=== PATIENT | male | born 1990 | race African-American/Black ===

== ENCOUNTER → 2019-10-25 | Emergency (ER) | payer MEDICAID ==
[~2019-10-25] MED LIST: BENADRYL25 M3 PO; QUETIAPINE FUM100 MG ORAL; ZOLOFT100 MG ORAL
--- NOTE | 2019-10-25 15:50 | Emergency Room Report ---
History of Present Illness General Chief Complaint: To Be Triaged Present Illness HPI 29-year-old male with history of bipolar disorder with psychotic refill of Seroquel, Zoloft. Patient reports that he takes 100 mg of Seroquel in the morning, 300 mg simple at night, and in 100 mg of Zoloft in the morning and 50 mg of Benadryl at nighttime. Patient appears to be compliant with medication. Denies any visual or auditory hallucinations at this time. Reports that he has an upcoming appointment with his psychiatrist in 2 weeks. Patient has resources to go to mental health facilities if needed. Denies any complaints. Allergies: Coded Allergies: No Known Allergies (Unverified , 10/25/19) Patient History Past Medical History: see triage record Past Surgical History: unable to obtain Family History: none Immunizations: UTD Reviewed Nursing Documentation: PMH: Agreed; PSxH: Agreed Review of Systems All Other Systems: negative except mentioned in HPI Physical Exam Sp02 EP Interpretation: reviewed, normal General Appearance: alert/responsive, no apparent distress, GCS 15, non-toxic Head: atraumatic Eyes: PERRL, lids + conjunctiva normal ENT: hearing intact, no angioedema Neck: supple/symm/no masses, no meningismus Respiratory: effort normal, no rhonchi, no wheezing, chest symmetrical Cardiovascular: regular rate, rhythm, no edema Gastrointestinal: non-tender, no mass, non-distended, no rebound/guarding, normal bowel sounds Musculoskeletal: gait & station normal, normal ROM, strength & tone normal, non -tender Neurologic: oriented x3, sensory intact, normal speech Psychiatric: normal inspection, judgment & insight normal Skin: normal inspection, no rash Lymphatic: normal inspection Medical Decision Making PA Attestation All my diagnosis and treatment plans were reviewed ad discussed with my supervising physician Dr. Parson Diagnostic Impression: Primary Impression: Medication refill ER Course 29-year-old male with history of bipolar disorder with psychotic refill of Seroquel, Zoloft. Patient reports that he takes 100 mg of Seroquel in the morning, 300 mg simple at night, and in 100 mg of Zoloft in the morning and 50 mg of Benadryl at nighttime. Patient appears to be compliant with medication. Denies any visual or auditory hallucinations at this time. Reports that he has an upcoming appointment with his psychiatrist in 2 weeks. Patient has resources to go to mental health facilities if needed. Denies any complaints. Ddx considered but are not limited to: generalized anxiety disorder, panic attack, depression with psycotic featurs, bipolar disorder, drug overdose Vital signs: are WNL, pt. is afebrile H&PE are most consistent with: Medication refill ORDERS: Seroquel, Zoloft, Benadryl ED INTERVENTIONS: None required at this time. DISCHARGE: At this time pt. is stable for d/c to home. Will provide printed patient care instructions, and any necessary prescriptions. Care plan and follow up instructions have been discussed with the patient prior to discharge. Patient to follow with psychiatrist, take medication as directed, if worsening symptoms return to emergency room Disposition: HOME, SELF-CARE Condition: Stable Scripts Diphenhydramine HCl (Benadryl) 25 Mg Capsule 50 MG PO BEDTIME for 14 Days, #28 CAP Prov: Yash Gay 10/25/19 Sertraline Hcl* (ZOLOFT*) 100 Mg Tablet 100 MG ORAL DAILY for 14 Days, #14 TAB Prov: Yash Gay 10/25/19 Quetiapine Fumarate* (SEROQUEL*) 100 Mg Tablet 300 MG ORAL BEDTIME for 14 Days, #42 TAB Prov: Yash Gay 10/25/19 Quetiapine Fumarate* (SEROQUEL*) 100 Mg Tablet 100 MG ORAL DAILY for 14 Days, #14 TAB Prov: Yash Gay 10/25/19 Patient Instructions: Medicine Refill at the Emergency Department Yash Gay Oct 25, 2019 15:50
--- NOTE | 2019-10-25 16:02 | NUR ---
ED Nurse Note: Patient is being discharged from medical care. D/C instruction and prescription given to patient. Patient ambulated out with steady gait with his belongings.
== END | disposition home or self-care (01) ==
LOC: EMR 15:56
DX: Z76.0 Encounter for issue of repeat prescription (principal); F31.9 Bipolar disorder, unspecified
CPT/HCPCS: 99282

== ENCOUNTER 2019-11-14 15:11 | Emergency (ER) | payer MEDICAID ==
[~2019-11-14] VITALS: Ht 177.8 cm; Wt 104.3 kg
[2019-11-14 15:22] VITALS: BP 124/78
--- NOTE | 2019-11-14 15:23 | NUR ---
ED Nurse Note: Pt ambulated to ED requesting medication refill on zoloft 100 mg and seroquel 100mg. NAD noted
--- NOTE | 2019-11-14 15:31 | Emergency Room Report ---
History of Present Illness General Chief Complaint: Medication Refill Source: Patient Present Illness HPI 29-year-old male with history of bipolar disorder with psychotic features, here requesting a medication refill. Patient was here mid-October for the same reason. Reports appointment with a psychiatrist on 27 November. Is compliant with taking his medication. Last dose of Seroquel, Zoloft, Benadryl were taken today. Patient denies any visual or auditory hallucinations. Denies SI and HI. Has no further complaints. And remembers exact dosing of his medication. Allergies: Coded Allergies: No Known Allergies (Unverified , 10/25/19) Patient History Past Medical History: see triage record Past Surgical History: unable to obtain Pertinent Family History: none Immunizations: UTD Reviewed Nursing Documentation: PMH: Agreed; PSxH: Agreed Nursing Documentation-PMH Past Medical History: No History, Except For Hx Cardiac Problems: No - bipolar Review of Systems All Other Systems: negative except mentioned in HPI Physical Exam Vital Signs Date Time Temp Pulse Resp B/P (MAP) Pulse Ox O2 Delivery O2 Flow Rate FiO2 11/14/19 15:16 97.3 87 19 124/78 (93) 98 Room Air Sp02 EP Interpretation: reviewed, normal General Appearance: well appearing, no apparent distress Head: normocephalic, atraumatic Eyes: bilateral eye normal inspection, bilateral eye PERRL ENT: hearing grossly normal, normal voice Neck: full range of motion, supple, no bony tend Respiratory: normal inspection, chest non-tender, lungs clear, no rhonchi, no respiratory distress, speaking full sentences Cardiovascular #1: normal inspection, normal peripheral pulses, regular rate, rhythm, no edema, no JVD, no murmur Gastrointestinal: non tender, soft Rectal: deferred Musculoskeletal: gait/station normal, swelling, normal range of motion Neurologic: alert, oriented, normal gait Psychiatric: judgement/insight normal, mood/affect normal, no suicidal/ homicidal ideation, no delusions Skin: no rash Lymphatic: no adenopathy Medical Decision Making PA Attestation All diagnoses and treatment plans were reviewed and discussed with my supervising physician Dr. Posadas Diagnostic Impression: Primary Impression: Encounter for medication refill ER Course 29-year-old male with history of bipolar disorder with psychotic features, here requesting a medication refill. Patient was here mid-October for the same reason. Reports appointment with a psychiatrist on 27 November. Is compliant with taking his medication. Last dose of Seroquel, Zoloft, Benadryl were taken today. Patient denies any visual or auditory hallucinations. Denies SI and HI. Has no further complaints. And remembers exact dosing of his medication. Ddx considered but are not limited to: generalized anxiety disorder, panic attack, depression with psycotic featurs, bipolar disorder, drug overdose Vital signs: are WNL, pt. is afebrile H&PE are most consistent with: medication refill ORDERS: Seroquel, Zoloft, Benadryl ED INTERVENTIONS: None required at this time. DISCHARGE: At this time pt. is stable for d/c to home. Will provide printed patient care instructions, and any necessary prescriptions. Care plan and follow up instructions have been discussed with the patient prior to discharge. Follow-up with your psychiatrist, take medication as directed, if worsening symptoms return to the emergency room Last Vital Signs Date Time Temp Pulse Resp B/P (MAP) Pulse Ox O2 Delivery O2 Flow Rate FiO2 11/14/19 15:22 97.3 76 19 124/78 98 Room Air Disposition: HOME, SELF-CARE Condition: Stable Scripts Diphenhydramine HCl (Benadryl) 25 Mg Capsule 50 MG PO BEDTIME for 14 Days, #28 CAP Prov: Yash Gay 11/14/19 Sertraline Hcl* (ZOLOFT*) 100 Mg Tablet 100 MG ORAL DAILY for 14 Days, #14 TAB Prov: Yash Gay 11/14/19 Quetiapine Fumarate* (SEROQUEL*) 100 Mg Tablet 300 MG ORAL BEDTIME for 14 Days, #42 TAB Prov: Yash Gay 11/14/19 Quetiapine Fumarate* (SEROQUEL*) 100 Mg Tablet 100 MG ORAL DAILY for 14 Days, #14 TAB Prov: Yash Gay 11/14/19 Patient Instructions: Medicine Refill at the Emergency Department Additional Instructions: Take medication as directed, follow-up with your psychiatrist, if worsening symptoms return to the emergency room Yash Gay Nov 14, 2019 15:31
[2019-11-14] MEDS ORDERED: QUETIAPINE FUM100 MG ORAL ×2 (15:32)
[2019-11-14] MEDS ORDERED: BENADRYL25 M3 PO (15:32)
[2019-11-14] MEDS ORDERED: ZOLOFT100 MG ORAL (15:32)
[2019-11-14 15:34] VITALS: BP 119/76
--- NOTE | 2019-11-14 15:35 | NUR ---
ER DISCHARGE NOTE: Patient is cleared to be discharged per ERMD, pt is aox4, on room air, with stable vital signs. pt was given dc and prescription instructions, pt was able to verbalize understanding, pt id band removed. pt is able to ambulate with steady gait. pt took all belongings.
== END 2019-11-14 16:25 | disposition home or self-care (01) ==
LOC: EMR 15:31
DX: F31.89 Other bipolar disorder (principal); Z76.0 Encounter for issue of repeat prescription
CPT/HCPCS: 99282

== ENCOUNTER 2020-03-24 12:37 | Emergency (ER) | payer MEDICAID ==
[~2020-03-24] VITALS: Ht 177.8 cm; Wt 108.9 kg
--- NOTE | 2020-03-24 12:40 | NUR ---
ED Nurse Note: Pt cleared by health care Provider for discharge. DC instructions/prescription was given and explained to pt and verbalized understanding of teachings. All medical deviecs such as ID band removed. Pt is AAO x4, ambulatory and left with all personal belongings. Addendum: 03/24/20 at 1422 by JENNIFER wrong time
[2020-03-24 12:57] VITALS: BP 125/78
--- NOTE | 2020-03-24 12:59 | NUR ---
ED Nurse Note:pt. came for psych meds refills, he doesn't have the list
--- NOTE | 2020-03-24 13:10 | Emergency Room Report ---
History of Present Illness General Chief Complaint: Medication Refill Present Illness HPI 29-year-old male with history of bipolar disorder with psychotic features who has been here multiple times for medication refill here requesting refill of Seroquel 100 mg in the morning and Seroquel 300 mg at nighttime as well as Zoloft 100 mg daily and Benadryl 50 mg daily. Patient reports that he last saw his psychiatrist 3 months ago and has been unable to see him due to COVID pandemic. Denies any suicidal homicidal ideation. Reports that he took the last dose of his medication yesterday. Denies any hallucination or delusions at this time. Is sitting comfortably with stable vital signs. Denies chest pain, shortness of breath, palpitation, headache and dizziness. Patient is aware that we cannot write Seroquel for more than limited numbers and patient is to follow-up with psychiatrist. Allergies: Coded Allergies: No Known Allergies (Unverified , 10/25/19) COVID-19 Screening Contact w/high risk pt: No Recent Travel to affected area: No Experienced COVID-19 symptoms?: No COVID-19 Testing performed SENIOR SALES COMPENSATION ANALYST: No Patient History Past Medical History: see triage record Past Surgical History: none Pertinent Family History: none Immunizations: UTD Reviewed Nursing Documentation: PMH: Agreed; PSxH: Agreed Nursing Documentation-PMH Hx Cardiac Problems: No - bipolar Review of Systems All Other Systems: negative except mentioned in HPI Physical Exam Vital Signs Date Time Temp Pulse Resp B/P (MAP) Pulse Ox O2 Delivery O2 Flow Rate FiO2 03/24/20 12:48 98.2 93 20 125/78 (94) 98 Room Air Sp02 EP Interpretation: reviewed, normal General Appearance: well appearing, no apparent distress Head: normocephalic, atraumatic Eyes: bilateral eye normal inspection, bilateral eye PERRL ENT: hearing grossly normal, normal voice Neck: full range of motion, supple Respiratory: no respiratory distress, speaking full sentences Cardiovascular #1: regular rate, rhythm, no edema Cardiovascular #2: 2+ radial (R), 2+ radial (L) Gastrointestinal: non tender, soft Rectal: deferred Genitourinary: no CVA tenderness Musculoskeletal: gait/station normal Neurologic: alert, oriented, normal gait Psychiatric: judgement/insight normal, memory normal, mood/affect normal, no suicidal/homicidal ideation, no delusions Skin: no rash Lymphatic: no adenopathy Medical Decision Making PA Attestation All my diagnosis and treatment plans were reviewed ad discussed with my supervising physician Dr. Parson Diagnostic Impression: Primary Impression: Encounter for medication refill ER Course 29-year-old male with history of bipolar disorder with psychotic features who has been here multiple times for medication refill here requesting refill of Seroquel 100 mg in the morning and Seroquel 300 mg at nighttime as well as Zoloft 100 mg daily and Benadryl 50 mg daily. Patient reports that he last saw his psychiatrist 3 months ago and has been unable to see him due to COVID pandemic. Denies any suicidal homicidal ideation. Reports that he took the last dose of his medication yesterday. Denies any hallucination or delusions at this for 7 days only, Zoloft,. Is sitting comfortably with stable vital signs. Denies chest pain, shortness of breath, palpitation, headache and dizziness. Patient is aware that we cannot write Seroquel for more than limited numbers and patient is to follow-up with psychiatrist. Ddx considered but are not limited to: generalized anxiety disorder, panic attack, depression with psycotic featurs, bipolar disorder, drug overdose Vital signs: are WNL, pt. is afebrile H&PE are most consistent with: Medication refill ORDERS: Seroquel 100 mg in the morning #7 for 7 days only, Seroquel 300 mg bedtime only for 7 days, Zoloft 100 mg for 1 month supply after I consulted with my supervising physician, Benadryl 50 mg for 7 days only ED INTERVENTIONS: None required at this time. DISCHARGE: At this time pt. is stable for d/c to home. Will provide printed patient care instructions, and any necessary prescriptions. Care plan and follow up instructions have been discussed with the patient prior to discharge. Patient to follow-up with primary doctor and psychiatrist for further refills also given list of mental health facilities to go to if cannot reach psychiatrist, if worsening symptoms return to the emergency room. Patient was evaluated in the context of the global COVID-19 pandemic, which necessitated consideration that the patient might be at risk for infection with the SARS-COV-2 virus that causes COVID-19. Institutional protocols and algorithms that pertain to the evaluation of patients at risk for COVID-19 are in a state of rapid change based on information relieved by multiple regulatory bodies including the CDC and the federal and state organizations. These policies and algorithms were followed during the patient's care in the ED. Last Vital Signs Date Time Temp Pulse Resp B/P (MAP) Pulse Ox O2 Delivery O2 Flow Rate FiO2 03/24/20 12:57 98.2 20 125/78 98 Room Air 03/24/20 12:48 93 Disposition: HOME, SELF-CARE Condition: Stable Scripts Sertraline Hcl* (ZOLOFT*) 100 Mg Tablet 100 MG ORAL DAILY for 30 Days, #30 TAB Prov: Yash Gay 03/24/20 Diphenhydramine HCl (Benadryl) 25 Mg Capsule 50 MG PO DAILY for 7 Days, #14 CAP Prov: aYsh Gay 03/24/20 Quetiapine Fumarate* (SEROQUEL*) 100 Mg Tablet 300 MG ORAL BEDTIME for 7 Days, #21 TAB 0 Refills Prov: Yash Gay 03/24/20 Quetiapine Fumarate* (SEROQUEL*) 100 Mg Tablet 100 MG ORAL DAILY for 7 Days, #7 TAB Prov: Yash Gay 03/24/20 Patient Instructions: Medicine Refill at the Emergency Department Additional Instructions: Follow-up with primary doctor or psychiatrist for further refills of psych medication, if worsening symptoms return to the emergency room Yash Gay Mar 24, 2020 13:10
[2020-03-24] MEDS ORDERED: ZOLOFT100 MG ORAL (13:12)
[2020-03-24] MEDS ORDERED: BENADRYL25 M3 PO (13:12)
[2020-03-24] MEDS ORDERED: SEROQUEL100 MG ORAL ×2 (13:12)
[2020-03-24 13:25] VITALS: BP 125/78
--- NOTE | 2020-03-24 13:25 | NUR ---
ED Nurse Note: Pt cleared by health care Provider for discharge. DC instructions/prescription was given and explained to pt and verbalized understanding of teachings. All medical deviecs such as ID band removed. Pt is AAO x4, ambulatory and left with all personal belongings.
== END 2020-03-24 13:25 | disposition home or self-care (01) ==
LOC: EMR 13:13
DX: Z76.0 Encounter for issue of repeat prescription (principal)
CPT/HCPCS: 99282

== ENCOUNTER 2020-06-03 09:45 | Emergency (ER) | payer MEDICAID ==
[~2020-06-03] VITALS: Ht 177.8 cm; Wt 108.9 kg
[~2020-06-03 09:45] MED LIST changes: +SEROQUEL100 MG ORAL
[2020-06-03 09:51] VITALS: BP 116/76
[2020-06-03] MEDS ORDERED: ZOLOFT100 MG ORAL (10:03)
[2020-06-03] MEDS ORDERED: SEROQUEL100 MG ORAL (10:03)
--- NOTE | 2020-06-03 10:03 | Emergency Room Report ---
History of Present Illness General Chief Complaint: Medication Refill Source: Patient Present Illness HPI -[place] 30-year-old male with past medical history of psychiatric illness presents to ED with medication refill request. He currently denies any suicidal, homicidal ideation, auditory or visual hallucinations. Denies fever, neck pain or stiffness, rash, photophobia, headache, chills, chest pain, cough, nausea, vomiting, diarrhea or other complaints. The patient's symptoms were gradual onset, severity was moderate, duration since 1 day Quality: Denies pain Past medical history: Psychiatric Past surgical history: Denies Smoking: Denies Alcohol use: Denies Drug use: Denies Review of systems: CONST: No fevers or chills, No night sweats PULMONARY: No productive cough, No shortness of breath CARDIAC: No chest pain, No palpitations GI: No vomiting, No diarrhea , No melena_or_BRBPR : No dysuria, No hematuria, No discharge NEURO: No new_focal_weakness_or_numbness, No confusion, No vision changes 14 point Review of Systems is otherwise negative except per HPI Physical Exam: GENERAL: Awake_alert_ nontoxic, no acute distress Spo2 100% on [RA] -[normal] EYES: Extraocular muscles are intact. Conjunctivae clear. Lids without swelling ENT: External nose and ear normal_in_appearance. Oropharynx clear. Head_ atraumatic, Moist_oral_mucosa NECK: No JVD. No meningismus. No thyromegaly. Supple. Trachea midline RESP: Normal respiratory effort. Symmetric rise. No stridor. Clear_to_ auscultation_No_rales_No_wheezes CARDIAC: Regular rate and regular rhytm. No_significant pedal edema. ABDOMEN: Soft. Nondistended. Nontender_No_rebound_or_guarding. MSK: Normal muscle tone, without rigidity. Extremities without asymmetric deformity or swelling. SKIN: Warm and dry. No visible cyanosis or pallor NEUROLOGIC: Alert, oriented x3. Motor_and_sensation_grossly_intact. No truncal ataxia. Gait_normal Psych: Normal mood and affect, normal judgment and insight Denies SI, HI, auditory or visual hallucinations - COORDINATION OF CARE Case was discussed with: Patient I reviewed previous ER medical records and did a medical reconciliation to confirm that patient is taking Zoloft 100 mg daily as well as Seroquel 100 mg p.o. every morning and 300 mg p.o. every afternoon. Medical Decision Making/Plan: Differential diagnosis includes anxiety attack, generalized anxiety disorder, stress reaction, medication refill among others. Med rec is consistent with his request for med refill. I will refill his psychiatric medications for the next 3 weeks which should give him enough time to follow-up with his outpatient therapist/psychologist. Patient verbalizes his understanding that he will need to go to his specialist in order to continue chronic maintenance therapy. He denies any suicidal, homicidal, auditory or visual hallucinations at this time. He is hemodynamically stable. Affect is appropriate. The patient denies any suicide attempt, overdose, or ingestion. They exhibit no signs of any severe toxic syndrome or drug / alcohol withdrawal. They have no focal neurologic deficits and were able to ambulate with a steady gait without assistance. The patients presentation seems to be consistent with chronic psychiatric maintenance, without any evidence of dangerous arrhythmias, thyrotoxicosis, metabolic / endocrinologic emergency, or indication for emergency psychiatric evaluation. The patient appears to be stable for dc home and follow with psychiatry as an outpatient. Allergies: Coded Allergies: No Known Allergies (Unverified , 10/25/19) COVID-19 Screening Contact w/high risk pt: No Recent Travel to affected area: No Experienced COVID-19 symptoms?: No COVID-19 Testing performed LABORER/KEY MAN: No Nursing Documentation-[facility] Past Medical History: No History, Except For Hx Cardiac Problems: No - bipolar Physical Exam Vital Signs Date Time Temp Pulse Resp B/P (MAP) Pulse Ox O2 Delivery O2 Flow Rate FiO2 06/03/20 09:51 98.4 96 15 116/76 100 Room Air Sp02 EP Interpretation: reviewed, normal Medical Decision Making Diagnostic Impression: Primary Impression: Encounter for medication refill Last Vital Signs Date Time Temp Pulse Resp B/P (MAP) Pulse Ox O2 Delivery O2 Flow Rate FiO2 06/03/20 09:51 98.4 96 15 116/76 (89) 100 Room Air Disposition: HOME, SELF-CARE Admit Decision Time: 10:02 Condition: Stable Scripts Quetiapine Fumarate* (SEROQUEL*) 100 Mg Tablet 300 MG ORAL BEDTIME for 14 Days, #42 TAB Prov: Miriam Hein D.O. 06/03/20 Sertraline Hcl* (ZOLOFT*) 100 Mg Tablet 100 MG ORAL DAILY for 30 Days, #30 TAB Prov: Miriam Hein D.O. 06/03/20 Quetiapine Fumarate* (SEROQUEL*) 100 Mg Tablet 100 MG ORAL DAILY for 7 Days, #7 TAB Prov: Miriam Hein D.O. 06/03/20 Patient Instructions: Medicine Refill at the Emergency Department Additional Instructions: Instructions for patient/gas station clerk: Follow up with your physician in [1-2 days]. Follow-up with your psychiatrist as an outpatient as indicated. Take all medications as prescribed. Follow-up with your doctor sooner if your condition requires a more timely clinical reevaluation. Return to the emergency department immediately if you feel that your condition is worsening or if you have any new or concerning symptoms. Review your discharge instructions and take any prescriptions given as instructed. Miriam Hein D.O. Jun 03, 2020 10:03
[2020-06-03] MEDS ORDERED: QUETIAPINE FUM100 MG ORAL (10:09)
[2020-06-03 10:14] VITALS: BP 122/85
== END 2020-06-03 10:14 | disposition home or self-care (01) ==
LOC: EMR 10:12
DX: Z76.0 Encounter for issue of repeat prescription (principal); F31.9 Bipolar disorder, unspecified
CPT/HCPCS: 99282

== ENCOUNTER 2020-08-22 15:49 | Emergency (ER) | payer MEDICAID ==
[~2020-08-22] VITALS: Ht 177.8 cm; Wt 113.4 kg
--- NOTE | 2020-08-22 15:55 | NUR ---
ED Nurse Note: Pt walked in for refill of seroquel and zoloft. Respirations even and unlabored on room air. Vitals stable as documented. A+Ox4, speaking in complete sentences
--- NOTE | 2020-08-22 16:06 | Emergency Room Report ---
History of Present Illness General Chief Complaint: Medication Refill Source: Patient Present Illness HPI 30-year-old male history of schizophrenia currently on Seroquel and Zoloft here requesting medication refill. Reports that he took the last dose today. Patient to [facility] multiple times for medication refill. Reports that he last saw his psychiatrist in June 2020 was given 2-month supply. Reports that every September he has to renew his contract with psychiatrist and has a next appointment September 17. Patient reports that he works till 4 PM and cannot make it to any of his psychiatric facilities because they close at 4 PM. Denies any SI or HI at this time. Patient was first given the option of taking Seroquel and Zoloft one dose at ED however reported he is refusing that. Patient agrees to take prescription 42 medication for 3 days until he goes on follow-up with a psychiatrist or as well as psychiatric facilities I provided him on Tuesday. Allergies: Coded Allergies: No Known Allergies (Unverified , 10/25/19) COVID-19 Screening Contact w/high risk pt: No Recent Travel to affected area: No Experienced COVID-19 symptoms?: No COVID-19 Testing performed UPPER CUTTER MACHINE: No Patient History Past Medical History: see triage record Past Surgical History: none Pertinent Family History: none Immunizations: UTD Reviewed Nursing Documentation: PMH: Agreed; PSxH: Agreed Nursing Documentation-PMH Past Medical History: No History, Except For Hx Cardiac Problems: No - bipolar Review of Systems All Other Systems: negative except mentioned in HPI Physical Exam Vital Signs Date Time Temp Pulse Resp B/P (MAP) Pulse Ox O2 Delivery O2 Flow Rate FiO2 08/22/20 15:51 97.9 110 17 128/78 (95) 100 Room Air Sp02 EP Interpretation: reviewed, normal General Appearance: well appearing, no apparent distress Head: normocephalic, atraumatic Eyes: bilateral eye normal inspection ENT: hearing grossly normal, normal voice Neck: full range of motion, supple Respiratory: no respiratory distress, speaking full sentences Cardiovascular #1: normal inspection, normal peripheral pulses, regular rate, rhythm, no edema Gastrointestinal: non tender, soft Rectal: deferred Musculoskeletal: gait/station normal Neurologic: alert, normal gait Psychiatric: mood/affect normal, no suicidal/homicidal ideation Skin: no rash Lymphatic: no adenopathy Medical Decision Making PA Attestation All diagnoses and treatment plans were reviewed and discussed with my supervising physician Dr. Carrillo Diagnostic Impression: Primary Impression: Encounter for medication refill ER Course 30-year-old male history of schizophrenia currently on Seroquel and Zoloft here requesting medication refill. Reports that he took the last dose today. Patient to [facility] multiple times for medication refill. Reports that he las t saw his psychiatrist in June 2020 was given 2-month supply. Reports that every September he has to renew his contract with psychiatrist and has a next appointment September 17. Patient reports that he works till 4 PM and cannot make it to any of his psychiatric facilities because they close at 4 PM. Denies any SI or HI at this time. Patient was first given the option of taking Seroquel and Zoloft one dose at ED however reported he is refusing that. Patient agrees to take prescription 42 medication for 3 days until he goes on follow-up with a psychiatrist or as well as psychiatric facilities I provided him on Tuesday. Ddx considered but are not limited to: generalized anxiety disorder, panic attack, depression with psychotic feature, bipolar disorder, drug overdose Vital signs: are WNL, pt. is afebrile H&PE are most consistent with: Medication refill ORDERS: 3-day supply of Zoloft and Seroquel ED INTERVENTIONS: None required at this time. DISCHARGE: At this time pt. is stable for d/c to home. Will provide printed patient care instructions, and any necessary prescriptions. Care plan and follow up instructions have been discussed with the patient prior to discharge. Patient was provided with letter is to follow-up with us on Tuesday. Patient agrees. If worsening symptoms return to the emergency room Last Vital Signs Date Time Temp Pulse Resp B/P (MAP) Pulse Ox O2 Delivery O2 Flow Rate FiO2 08/22/20 15:51 97.9 110 17 128/78 (95) 100 Room Air Disposition: HOME, SELF-CARE Condition: Stable Scripts Sertraline Hcl* (ZOLOFT*) 100 Mg Tablet 100 MG ORAL DAILY for 3 Days, #3 TAB Prov: Yash Gay 08/22/20 Quetiapine Fumarate (SEROQUEL) 300 Mg Tablet 300 MG ORAL BEDTIME for 3 Days, #3 TAB Prov: Yash Gay 08/22/20 Patient Instructions: Medicine Refill at the Emergency Department Additional Instructions: As directed, follow-up to psychiatric facility in 2 days, if worsening symptoms return to emergency room Yash Gay Aug 22, 2020 16:06
[2020-08-22] MEDS ORDERED: ZOLOFT100 MG ORAL (16:08)
[2020-08-22] MEDS ORDERED: SEROQUEL300 MG ORAL (16:08)
[2020-08-22 16:09] VITALS: BP 129/74
--- NOTE | 2020-08-22 16:18 | NUR ---
ED Nurse Note: Pt cleared by health care Provider for discharge. DC instructions/prescription were given and explained to pt and verbalized understanding of teachings. All medical devices such as ID band removed. Pt is AAO x4, ambulatory and left with all personal belongings.
[2020-08-22 16:20] VITALS: BP 133/72
== END 2020-08-22 16:20 | disposition home or self-care (01) ==
LOC: EMR 16:00
DX: Z76.0 Encounter for issue of repeat prescription (principal); F31.9 Bipolar disorder, unspecified
CPT/HCPCS: 99282